=== PATIENT | female | born 1930 | race Caucasian/White ===

== ENCOUNTER 2016-12-23 21:38 | Emergency (ER) | payer MEDICARE ==
[~2016-12-23] VITALS: Ht 162.6 cm; Wt 45.4 kg
[2016-12-23] MEDS ORDERED: ONDANSETRON 4MG/2ML VIAL (J2405) As Ordered ONE (22:00)
[2016-12-23] MEDS ORDERED: MORPHINE 4 MG/ML 1ML SYRINGE As Ordered ONE (22:00)
[2016-12-23] MEDS ORDERED: ONDANSETRON 4MG/2ML VIAL (J2405) IV ONE (22:15)
[2016-12-23] MEDS ORDERED: MORPHINE 4 MG/ML 1ML SYRINGE IV ONE (22:15)
[2016-12-23] MEDS ORDERED: LIDOCAINE 1% MDV 20ML VIAL As Ordered ONE (22:55)
[2016-12-23 23:42] VITALS: BP 134/70
--- NOTE | 2016-12-24 02:22 | ER ---
DATE OF CONSULTATION: 12/23/2016 REASON FOR CONSULTATION: Displaced left distal radius fracture. HISTORY OF PRESENT ILLNESS: She is an 86-year-old right-hand dominant female had a mechanical fall at her home and landed on her outstretched left wrist, had pain and soreness, obvious deformity of the wrist and was brought to the emergency room with her son to get this looked after. It was evaluated by the emergency room (ER) staff, Dr. Arevalo and x-rayed her wrist, found to have a displaced distal radius and ulna fracture and I was called to see her for this. She does not complain of any other injury. No loss of consciousness. No elbow or shoulder pain. No numbness or tingling. Just the swelling and pain and stiffness in her fingers and the obvious deformity of her wrist. PAST MEDICAL HISTORY: Significant for: 1. Hypothyroidism. 2. Chronic obstructive pulmonary disease (COPD). 3. Osteoporosis. 4. Gastric reflux. 5. Hypercholesterolemia. ALLERGIES: None. PAST SURGICAL HISTORY: She has had Billroth gastrojejunostomy in the past. She has also had a left proximal humerus fracture treated nonsurgically. MEDICATIONS: - Citracal - Flonase - multivitamins - loratadine - iron - magnesium - Breo Ellipta - levothyroxine - omeprazole - ProAir - vitamin D and calcium FAMILY HISTORY: Her father and mother are both . She has three brothers, three sisters and four sons. She used to smoke cigarettes. She quit smoking a few years ago. 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 She is here with her son. REVIEW OF SYSTEMS: And health survey are otherwise unremarkable. When I examine her, she is an alert, pleasant, elderly, slender female, complaining only of isolated soreness of her left wrist. She weighs 100 pounds. Blood pressure is 102/52, pulse of 52, respirations 16, oxygen saturations are 98% on room air. Temperature is 97.3. HEENT exam is benign. Lower extremities were benign. No obvious trauma. Her left upper extremity had obvious apex volar angulated distal radius fracture with swelling and crepitance. Elbow and shoulder examinations were benign. She had a strong palpable radial pulse. She could flex and extend the fingers. Normal sensation and good capillary refill were noted. X-rays of her wrist AP lateral views demonstrate a significantly shortened and displaced distal radius and ulna fracture. IMPRESSION: Left distal radius and ulna fracture in an elderly, pleasant female, nondominant arm, 86 years of age. I talked to she and her son about this. I would recommend we try to reduce the wrist and get it reasonably aligned, take the pressure off her nerves and hopefully get this reasonably aligned that we can treat this without any surgical intervention. She would like to have that done as well, so I offered a hematoma block and closed reduction here in the emergency room and then will followup with her in the office next week.
--- NOTE | 2016-12-24 06:12 | RO ---
DATE OF PROCEDURE: 12/23/2016 PREPROCEDURE DIAGNOSIS: Displaced distal radius and ulna fracture left wrist. POSTPROCEDURE DIAGNOSIS: Displaced distal radius and ulna fracture left wrist. PROCEDURE: Closed reduction with finger traps and counter weights and casting left distal radius and ulna fracture. SURGEON: Dr. Jhoan Tabares FISH HATCH[employer] WORKER: ANESTHESIA:: Local hematoma block. COMPLICATIONS: None. DESCRIPTION OF PROCEDURE: A sterile prep was provided to her left wrist on the dorsum and then approximately 12 mL of 1% lidocaine were infiltrated in the hematoma of the fracture site dorsally. Then, her fingers were placed into finger traps. Counter weight of 5 pounds were placed on the distal humerus and then a closed reduction maneuver was performed. She tolerated it very well. Then while she was hanging in finger traps, I put volar and dorsal plaster splints and then a circumferential plaster was then applied and the cast was molded appropriately and held until the cast had hardened. Post reduction radiographs showed anatomic reduction of the fracture. She tolerated it well. There were no complications.
--- NOTE | 2016-12-24 08:09 | REP ---
Left wrist four views: There is a colleagues fracture of the distal radius and a transverse fracture of the distal ulna. The distal fracture fragments are angulated and displaced posteriorly. 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 Signed by Lawson Ceron MD 12/24/2016 08:00 A
== END 2016-12-24 00:01 | disposition home or self-care (01) ==
LOC: EDBD 21:38 → M ED 22:49
DX: S52.532A Colles' fracture of left radius, initial encounter for closed fracture (principal); S52.692A Other fracture of lower end of left ulna, initial encounter for closed fracture; W01.0XXA Fall on same level from slipping, tripping and stumbling without subsequent striking against object, initial encounter; Y92.019 Unspecified place in single-family (private) house as the place of occurrence of the external cause; Y93.01 Activity, walking, marching and hiking; Y99.8 Other external cause status; J44.9 Chronic obstructive pulmonary disease, unspecified; M19.90 Unspecified osteoarthritis, unspecified site; E03.9 Hypothyroidism, unspecified
CPT/HCPCS: 73100; 73110; 96374; 96375; 99282; J2405

== ENCOUNTER → 2017-01-06 | Outpatient (REF) | payer MEDICARE ==
[2017-01-06 12:57] LABS: MEAN CORPUSCULAR HEMOGLOBIN 30.8 pg (27.0-33.0); MEAN CORPUSCULAR HGB CONC 32.8 g/dl (32.0-36.5); MEAN CORPUSCULAR VOLUME 93.9 fl (80.0-96.0); RED CELL DISTRIBUTION WIDTH 13.8 % (11.5-14.5); WHITE BLOOD COUNT 7.9 K/mm3 (4.0-10.0)
[2017-01-06 13:11] LABS: ALBUMIN 3.6 GM/DL (3.2-5.2); ALBUMIN/GLOBULIN RATIO 1.2 (1.00-1.93); BILIRUBIN,TOTAL 0.3 MG/DL (0.2-1.0); CALCIUM LEVEL 8.9 MG/DL (8.8-10.2); CREATININE FOR GFR 0.98 MG/DL (0.55-1.02); GLOMERULAR FILTRATION RATE 57.3 (>32); TOTAL PROTEIN 6.6 GM/DL (6.4-8.2)
== END ==
LOC: M SFHCPLAZ 09:59
PROVIDERS: ATTEND Nurse Practitioner Adult Health
DX: D50.9 Iron deficiency anemia, unspecified (principal); Z98.0 Intestinal bypass and anastomosis status; E78.00 Pure hypercholesterolemia, unspecified; E03.9 Hypothyroidism, unspecified; E55.9 Vitamin D deficiency, unspecified

== ENCOUNTER → 2017-07-12 | Outpatient (REF) | payer MEDICARE ==
[2017-07-12 13:29] LABS: MEAN CORPUSCULAR HEMOGLOBIN 30.2 pg (27.0-33.0); MEAN CORPUSCULAR HGB CONC 31.5 g/dl (32.0-36.5); MEAN CORPUSCULAR VOLUME 95.7 fl (80.0-96.0); PLATELET COUNT, AUTOMATED 166 10^3/uL (150-450); RED CELL DISTRIBUTION WIDTH 14.1 % (11.5-14.5); WHITE BLOOD COUNT 7.7 10^3/uL (4.0-10.0)
[2017-07-12 14:26] LABS: ALBUMIN 3.8 GM/DL (3.2-5.2); ALBUMIN/GLOBULIN RATIO 1.12 (1.00-1.93); ALKALINE PHOSPHATASE 110 U/L (45-117); ALT/SGPT 26 U/L (12-78); ANION GAP 10 MEQ/L (8-16); AST/SGOT 21 U/L (15-37); BILIRUBIN,TOTAL 0.3 MG/DL (0.2-1.0); BLOOD UREA NITROGEN 17 MG/DL (7-18); CALCIUM LEVEL 9.3 MG/DL (8.8-10.2); CARBON DIOXIDE LEVEL 28 MEQ/L (21-32); CHLORIDE LEVEL 102 MEQ/L (98-107); CREATININE FOR GFR 0.93 MG/DL (0.55-1.02); GLOMERULAR FILTRATION RATE > 60.0 (>32); GLUCOSE, FASTING 83 MG/DL (83-110); POTASSIUM SERUM 4.3 MEQ/L (3.5-5.1); SODIUM LEVEL 140 MEQ/L (136-145); TOTAL PROTEIN 7.2 GM/DL (6.4-8.2)
== END ==
LOC: M SFHCPLAZ 11:36
PROVIDERS: ATTEND Nurse Practitioner Adult Health
DX: E03.9 Hypothyroidism, unspecified (principal); E55.9 Vitamin D deficiency, unspecified; D50.9 Iron deficiency anemia, unspecified; Z98.0 Intestinal bypass and anastomosis status; Z23 Encounter for immunization
CPT/HCPCS: 80053; 82306; 84443; 85027; 90662; G0008; G0463

== ENCOUNTER → 2018-01-03 | Outpatient (REF) | payer MEDICARE ==
[2018-01-03 13:04] LABS: HEMOGLOBIN 13.3 g/dl (12.0-15.5); MEAN CORPUSCULAR HEMOGLOBIN 30.6 pg (27.0-33.0); MEAN CORPUSCULAR HGB CONC 32.4 g/dl (32.0-36.5); MEAN CORPUSCULAR VOLUME 94.5 fl (80.0-96.0); PLATELET COUNT, AUTOMATED 308 10^3/uL (150-450); RED BLOOD COUNT 4.34 10^6/uL (4.00-5.40); RED CELL DISTRIBUTION WIDTH 13.3 % (11.5-14.5); WHITE BLOOD COUNT 6.9 10^3/uL (4.0-10.0)
[2018-01-03 13:30] LABS: TOTAL 25(OH) VITAMIN D 89.9 NG/ML (30.0-100.0)
[2018-01-03 13:59] LABS: ALBUMIN 3.8 GM/DL (3.2-5.2); ALBUMIN/GLOBULIN RATIO 1.19 (1.00-1.93); ALKALINE PHOSPHATASE 112 U/L (45-117); ALT/SGPT 23 U/L (12-78); ANION GAP 9 MEQ/L (8-16); AST/SGOT 25 U/L (7-37); BILIRUBIN,TOTAL 0.4 MG/DL (0.2-1.0); BLOOD UREA NITROGEN 16 MG/DL (7-18); CALCIUM LEVEL 9.5 MG/DL (8.8-10.2); CARBON DIOXIDE LEVEL 28 MEQ/L (21-32); CHLORIDE LEVEL 102 MEQ/L (98-107); CHOLESTEROL LEVEL 233 MG/DL (<200); CHOLESTEROL RISK RATIO 3.106 (<5); CREATININE FOR GFR 1.02 MG/DL (0.55-1.30); FERRITIN 447 NG/ML (8-252); GLOMERULAR FILTRATION RATE 54.6 (>32); GLUCOSE, FASTING 93 MG/DL (70-100); HDL CHOLESTEROL 75 MG/DL (>40); IRON (FE) 75 UG/DL (50-170); LDL CHOLESTEROL 129.4 MG/DL (<100); NON-HDL-C 158 MG/DL; PERCENT SATURATION 25.2 % (13.2-45.0); POTASSIUM SERUM 4.6 MEQ/L (3.5-5.1); SODIUM LEVEL 139 MEQ/L (136-145); TOTAL IRON BINDING CAPACITY 298 UG/DL (250-450); TRIGLYCERIDES LEVEL 143 MG/DL (<150)
== END ==
LOC: M SFHCPLAZ 10:16
DX: E55.9 Vitamin D deficiency, unspecified (principal); E03.9 Hypothyroidism, unspecified; D50.9 Iron deficiency anemia, unspecified; Z00.00 Encounter for general adult medical examination without abnormal findings; E78.00 Pure hypercholesterolemia, unspecified
CPT/HCPCS: 83550

== ENCOUNTER → 2018-08-14 | Outpatient (CLI) | payer MEDICARE | LOC: M WUC 11:51 | DX: S20.211A Contusion of right front wall of thorax, initial encounter (principal); X58.XXXA Exposure to other specified factors, initial encounter; Y92.9 Unspecified place or not applicable; Y93.9 Activity, unspecified; Y99.9 Unspecified external cause status; J44.9 Chronic obstructive pulmonary disease, unspecified; R91.8 Other nonspecific abnormal finding of lung field | CPT/HCPCS: 71101 ==

== ENCOUNTER → 2018-11-28 | Outpatient (CLI) | payer MEDICARE | LOC: M WUC 16:01 | PROVIDERS: ATTEND Nurse Practitioner Adult Health | DX: E03.9 Hypothyroidism, unspecified (principal) ==

== ENCOUNTER → 2019-01-11 | Outpatient (REF) | payer MEDICARE ==
[2019-01-11 13:27] LABS: HEMATOCRIT 39.8 % (36.0-47.0); HEMOGLOBIN 12.7 g/dl (12.0-15.5); MEAN CORPUSCULAR HEMOGLOBIN 30.3 pg (27.0-33.0); MEAN CORPUSCULAR HGB CONC 31.9 g/dl (32.0-36.5); PLATELET COUNT, AUTOMATED 318 10^3/uL (150-450); RED BLOOD COUNT 4.19 10^6/uL (4.00-5.40); WHITE BLOOD COUNT 7.7 10^3/uL (4.0-10.0)
[2019-01-11 13:36] LABS: ALBUMIN 3.4 GM/DL (3.2-5.2); BILIRUBIN,TOTAL 0.3 MG/DL (0.2-1.0); CALCIUM LEVEL 8.6 MG/DL (8.8-10.2); CHOLESTEROL RISK RATIO 2.555 (<5); CREATININE FOR GFR 0.94 MG/DL (0.55-1.30); GLOMERULAR FILTRATION RATE 59.8 (>32); MAGNESIUM LEVEL 2.2 MG/DL (1.8-2.4); POTASSIUM SERUM 4.6 MEQ/L (3.5-5.1); THYROID STIMULATING HORMONE 2.55 uIU/ML (0.358-3.740); TOTAL PROTEIN 6.7 GM/DL (6.4-8.2)
[2019-01-11 13:41] LABS: TOTAL 25(OH) VITAMIN D 88.1 NG/ML (30.0-100.0)
== END ==
LOC: M LABDRAW1 11:54
PROVIDERS: ATTEND Nurse Practitioner Adult Health
DX: Z00.00 Encounter for general adult medical examination without abnormal findings (principal); D50.9 Iron deficiency anemia, unspecified; E03.9 Hypothyroidism, unspecified

== ENCOUNTER → 2020-01-31 | Outpatient (REF) | payer MEDICARE ==
[2020-01-31 16:00] LABS: HEMOGLOBIN 12.7 g/dl (12.0-15.5); MEAN CORPUSCULAR HEMOGLOBIN 29.9 pg (27.0-33.0); MEAN CORPUSCULAR HGB CONC 31.8 g/dl (32.0-36.5); MEAN CORPUSCULAR VOLUME 94.1 fl (80.0-96.0); PLATELET COUNT, AUTOMATED 316 10^3/uL (150-450); RED BLOOD COUNT 4.25 10^6/uL (4.00-5.40); WHITE BLOOD COUNT 7.3 10^3/uL (4.0-10.0)
[2020-01-31 16:43] LABS: CHOLESTEROL RISK RATIO 3.484 (<5); MAGNESIUM LEVEL 2.4 MG/DL (1.8-2.4); PERCENT SATURATION 18.2 % (13.2-45.0); THYROID STIMULATING HORMONE 4.03 uIU/ML (0.358-3.740); TOTAL 25(OH) VITAMIN D 77.7 NG/ML (30.0-100.0)
== END ==
LOC: M SFHCPLAZ 13:53
PROVIDERS: ATTEND Physician Assistant
DX: D50.9 Iron deficiency anemia, unspecified (principal); E78.2 Mixed hyperlipidemia; E03.9 Hypothyroidism, unspecified; E55.9 Vitamin D deficiency, unspecified
CPT/HCPCS: 36415; 80061; 82306; 82728; 83550; 83735; 84443; 85027; G0463